=== PATIENT | male | born 1990 | race African-American/Black ===

== ENCOUNTER 2019-09-30 08:19 | Emergency (ER) | payer OTHER ==
[2019-09-30 08:28] VITALS: BP 134/84; PULSE 68; TEMP 98; BMI 26.6
--- NOTE | 2019-09-30 08:51 | PDOC ---
History of Present Illness - General Chief Complaint: Back Pain Stated Complaint: BACK PAIN Time Seen by Provider: 09/30/19 08:28 History Source: Patient Exam Limitations: No Limitations - History of Present Illness Initial Comments: 09/30/19 08:43 28y M no pmhx presents with several days of atraumatic R back pain. Patient states that the pain started approximately 1 month ago he went to [facility] is was diagnosed with muscular back pain versus UTI, was started with Bactrim and was given Motrin with minimal improvement in his pain. The pain gradually got better and resolved for several weeks until starting to recur again approximately 4 days ago. Patient states that the pain is localized in his right mid back it seems to worsen when he rotates his body, states that when he is at rest there is usually no pain. He denies any associated symptoms including fever, chills, nausea, vomiting, chest pain, shortness of breath, anterior abdominal pain, testicular or scrotal pain. There is no change in the discomfort with food intake. Patient does Darker colored urine recently, particularly after drinking juice. Patient states as a result of the COVID pandemic he has been trying to maintain his fitness he used to workout with weights however he has changed to primarily isometric and body weight work-out. 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 Is this a multiple visit Asthma Patient?: No Past History - Medical History Allergies/Adverse Reactions: Allergies Allergy/AdvReac Type Severity Reaction Status Date / Time No Known Allergies Allergy Unverified 09/30/19 08:20 Home Medications: Ambulatory Orders NK [No Known Home Medication] 09/30/19 COPD: No Other medical history: DENIES - Psycho-Social/Smoking History Smoking History: Never smoked Information on smoking cessation initiated: No - Substance Abuse Hx (Audit-C & DAST Scrn) How often the patient has a drink containing alcohol: 2-4 times / month Number of drinks the patient has on a typical day: 1 or 2 How often the patient has six or more drinks on one occasion: Never Score: In Men: 4 or > Positive; In Women: 3 or > Positive: 2 Screen Result (Pos requires Nsg. Audit-10AR): Negative In the last yr the pt used illegal drug/Rx for NonMed reason: No Score: Yes response is considered Positive: 0 Screen Result (Positive result requires Nsg. DAST-10): Negative Review of Systems - Review of Systems Able to Perform ROS?: Yes Comments:: 09/30/19 08:47 Constitutional - no reported Fever, Chills, HEENT: no reported vision changes, sore throat Respiratory: no reported cough, sob, hemoptysis Cardiac: no reported chest pain, palpitations, light headedness, leg swelling Abd/GI: no reported abd pain, nausea, vomiting, blood per rectum, melena, diarrhea : no reported dysuria, frequency, discharge Musculskelatal - +back pain, no reported joint swelling skin - no reported bruising, erythema, rash neurological: no reported headache, numbness, focal weakness, tingling, ataxia, hematologic: no reported easy bruising, easy bleeding *Physical Exam - Vital Signs Last Vital Signs Temp Pulse Resp BP Pulse Ox 98 F 68 16 134/84 99 09/30/19 08:20 09/30/19 08:20 09/30/19 08:20 09/30/19 08:20 09/30/19 08:20 - Physical Exam 09/30/19 08:48 GENERAL: The patient is awake, alert, and fully oriented, Nontoxic - in no acute distress. HEAD: Normocephalic, atraumatic. EYES: extraocular movements intact, sclera anicteric, conjunctiva clear. ENT: Normal voice, Moist mucous membranes. NECK: Normal range of motion, supple LUNGS: Breath sounds equal, clear to auscultation bilaterally. No wheezes, no rhonchi, no rales. HEART: Regular rate and rhythm, normal S1 and S2 without murmur, rub or gallop. ABDOMEN: Soft, nontender, No guarding, no rebound. No CVA tenderness BACK: No focal midlin eor paraspinal tenderness, mild reproducible tenderness with hip flexion/palpation on midback, no rashes EXTREMITIES: Normal range of motion, no edema. NEUROLOGICAL: No facial assymetry, Normal speech, PSYCH: Normal mood, normal affect. SKIN: Warm, Dry, normal turgor, Medical Decision Making - Medical Decision Making 09/30/19 08:51 suspect msk pain pt declines pain medications will ck ua to screen for uti/hematuria recommend pt hold off on core excercises/burpees for a few days, heat to area of pain, motrin/tylenol Discharge - Discharge Information Problems reviewed: Yes Clinical Impression/Diagnosis: Muscle strain Condition: Stable Disposition: HOME - Admission No - Follow up/Referral Referrals: [facility] [place] [facility] [place] [Provider Group] - Patient Discharge Instructions Patient Printed Discharge Instructions: DI for Back Strain or Sprain Additional Instructions: Return to the emergency department immediately with ANY new, persistent or worsening symptoms including numbness, tingling, weakness, fevers or any other concerns. Take ibuprofen (400mg)/tylenol(650mg) every 6 hours for 2 days. Apply heat to your sore muscles. Hold off on core body excercises for ateleast 5 days. You MUST call and follow up with your doctor in 4-5 days for further evaluation of your symptoms. Your emergency department visit is not complete without a followup with your doctor for reevaluation.. Results were discussed with you. Please make sure your doctor reviews the results of your emergency evaluation. - Post Discharge Activity
[2019-09-30 09:55] LABS: EPITHELIAL CELLS FEW /hpf
[2019-09-30 09:56] LABS: URINE MUCUS 1+
== END 2019-09-30 09:18 | disposition home or self-care (01) ==
LOC: FER 08:19
DX: S39.012A Strain of muscle, fascia and tendon of lower back, initial encounter (principal)
CPT/HCPCS: 81003; 81015; 99283-25